=== PATIENT | female | born 1975 | race Hispanic/Latino ===

== ENCOUNTER → 2018-04-24 | Day surgery (SDC) | payer BC, SELFPAY ==
[~2018-04-24] MED LIST: CEFAZOLIN 1 GM VIAL ONE; CEFAZOLIN 1 GM in Sodium Chloride 0.9% 100 ML IVPB SCH; Iothalamate Meglumine 60% 50 ML VIAL FS ONE; Ketorolac Tromethamine 30 MG/ML VIAL ONE
[2018-04-24 10:39] LABS: Bilirubin Negative (Negative); Blood, Urine Small (Negative); Glucose, Urine (Dipstick) Negative (Negative); Leukocyte Negative (Negative); Nitrite Negative (Negative); Protein, Urine (Dipstick) Negative (Neg-Trace); Specific Gravity, Urine 1.025 (1.005-1.030); Urobilinogen 0.2 mg/dL (0.2-1.0)
[2018-04-24 10:41] LABS: Clarity Hazy (Clear)
[2018-04-24 10:51] LABS: RBC/HPF 0-3 HPF (0-3); WBC/HPF 0-3 HPF (0-3)
[2018-04-24 10:52] LABS: Bacteria/HPF 1+ HPF (None Seen); Hyaline Casts/LPF NONE SEEN LPF (0-3 Hyaline)
[2018-04-24 10:54] LABS: #Basophils 0.1 thou/uL (0.0-0.2); #Eosinphils 0.1 thou/uL (0.0-0.7); #Monocytes 0.5 thou/uL (0.11-0.59); %Basophils 0.6 % (0.0-1.0); %Eosinophils 0.9 % (0.0-10.0); %Lymphocytes 31.2 % (21.0-51.0); %Monocytes 5.3 % (0.0-10.0); %Neutrophils 61.9 % (42.0-75.0); Hemoglobin 14.2 g/dL (12.0-16.0); Mean Corpuscular HGB CONC 33.2 g/dL (32.0-36.0); Mean Corpuscular Hemoglobin 27.9 pg (27.0-31.0); Mean Corpuscular Volume 84.3 fL (78.0-98.0); Mean Platelet Volume 7.6 fL (7.4-10.4); Platelet Count 224 thou/uL (130-400); RBC Distribution Width 13.7 % (11.5-14.5); Red Blood Cell (RBC) Count 5.07 mill/uL (4.20-5.40); White Blood Cell (WBC) Count 9.7 thou/uL (4.8-10.8)
[2018-04-24 11:04] LABS: BHCG - Serum Negative (NEGATIVE); Pregs Control Background? CLEAR/WHITE (CLR/WHITE); Pregs Control Bar Appear? YES (CONTROL BAR)
[2018-04-24 11:16] LABS: ALT (SGPT) 94 U/L (8-55); AST (SGOT) 60 U/L (5-34); Albumin 4.2 g/dL (3.5-5.0); Alkaline Phosphatase 79 U/L (40-150); Anion Gap 12 mmol/L (10-20); BUN (Urea Nitrogen) 10 mg/dL (7.0-18.7); Bilirubin, Total 0.9 mg/dL (0.2-1.2); Calc. Creatinine Clearance 0 mL/min (70-130); Calcium 11.2 mg/dL (7.8-10.44); Carbon Dioxide 22 mmol/L (22-29); Chloride 108 mmol/L (98-107); Estimated GFR-MDRD 78; Glucose 95 mg/dL (70-105); Lipase 22 U/L (8-78); Potassium 3.6 mmol/L (3.5-5.1); Protein, Total 7.2 g/dL (6.0-8.3); Sodium 138 mmol/L (136-145)
--- NOTE | 2018-04-24 11:51 | CT ---
CT ABDOMEN AND PELVIS NONCONTRAST: 04/24/2018 HISTORY: Right flank pain. COMPARISON: 04/17/2014 COMPARISON: There is moderate distention of the right renal collecting system and pelvis, to the level of an oval calculus at the distal right ureter that measures up to 1 cm in length x 0.6 cm in width. The left renal collecting system, ureter, and urinary bladder are decompressed. Multiple calcificati ons are present within the calyces of each kidney, measuring up to 0.5 cm. Lack of contrast limits evaluation for other abnormalities. The gallbladder is surgically absent. D egenerative changes of the lumbar spine. IMPRESSION: Partial obstruction at a 1 cm distal right ureteral calculus. Additional nonobstructing bilateral re nal calculi. POS: LEROY
--- NOTE | 2018-04-24 13:54 | HP ---
DATE OF SERVICE: 04/24/2018 REASON FOR ADMISSION: Obstructing right stone with persistent pain after medications. HISTORY OF PRESENT ILLNESS: The patient is a 43-year-old female who is actually a patient of Dr. Vuong who had significant right renal colic and presented with a CT scan that found a 1 cm obstructing UVJ stone with hydronephrosis. She had no fever. She had no hematuria. She has no concern for urinary tract infection. She has passed one stone in the room and she passed another after having a stent placed and then removed given that it was a small stone per her report. Normally, she has frequency q. 2-3 hours, nocturia x1. She has never had UTIs before. She has no leakage. PAST MEDICAL HISTORY: Significant for stones. PAST SURGICAL HISTORY: Includes gallbladder, ureteral stent as above-mentioned and left arthroscopy for meniscus repair. ALLERGIES: None. MEDICATIONS: She is on multiple supplements for weight loss. I cautioned against making sure none of these have significant amounts of calcium in it. SURGERY CONSULTANT HISTORY: She has had a emergently given infant issues, but the child was fine and then she had 3 vaginal deliveries. She still has her uterus and ovaries. SOCIAL HISTORY: She does not smoke, drink or use drugs. She is walking now and has already lost 14 pounds since initiating her weight loss program. REVIEW OF SYSTEMS: Also reveals no chest pain, no shortness of breath unless that related to significant pain. No cough, no diarrhea, no constipation. No swelling in the ankles. FAMILY HISTORY: Significant for mother and father being alive and healthy. She is not sure if either them had stones; neither had cancer. PHYSICAL EXAMINATION: VITAL SIGNS: Please see the chart for her vitals, but she has been afebrile with vital signs stable. GENERAL: She appears comfortable in the bed. She is obese so JVD is difficult to establish. HEENT: She has no scleral icterus or diaphoresis. CARDIOVASCULAR: Regular rhythm with a borderline tachycardia noted. No murmurs , gallops or rubs. LUNGS: Clear to auscultation bilaterally. ABDOMEN: Soft, nondistended with mild tenderness in the right lower quadrant, but no peritoneal signs or rebound tenderness. She had right CVA tenderness, but none on the left. EXTREMITIES: She had no significant lower extremity edema. PELVIC: Her vulva will be examined in the OR. LABORATORY DATA: Reveal a normal CBC, BUN and creatinine of 10 and 0.80. Urinalysis with 0-3 WBCs, 0-3 RBCs, 1+ bacteria and 4-6 squamous cells, may be a contaminant given the lack of inflammation or symptoms noted, but will ensure culture is sent. CT scan reviewed personally from 04/24/2018 without contrast revealed eight stones on the right, all less than 3 mm except for a mid stone on the right with 5 mm. She had 5 or 6 small stones on the left, all less than 5 mm and then she has the offending 1 cm long x 5 mm wide right UVJ stone with hydronephrosis. CT scan from 04/2014 was also reviewed, showed only bilateral efflux at that time. ASSESSMENT AND PLAN: We have a 43-year-old female with an obstructing right stone and intractable pain, being admitted for urgent stent. We reviewed stent placements and how we will not be treating the offending stone in the case that she needs a perk tube if I am unable to place a stent, she can return for definitive followup with me as an outpatient. She can return to Dr. Vuong or to me depending on whatever she is most comfortable with. She will still need stone therapy after this admission. MIHAELA
--- NOTE | 2018-04-25 01:45 | DIS ---
The patient was admitted acutely with an obstructing 1-cm distal stone and intractable pain, so was set for urgent stent. Less than approximately 10 minutes before she was going to be brought back to the OR, she voided and spontaneously passed the stone. At this point, it was sent for specimen and she was discharged to home with antibiotics to complete 3 days based on the concern for slight bacteria in the urine. She was also given a prescription for tamsulosin. She will follow up in the office to review the remaining stones she has in the kidneys as well as stone prevention. MIHAELA
[2018-04-29 11:28] LABS: CA Oxalate Dihydrate 15 % (.); CA Oxalate Monohydrate 10 % (.); CA Phosphate 75 % (.); Color Tan (.); Comment Note: (.); Stone Size 8x4x4 mm (.)
== END ==
LOC: ERS 10:15 → SDC/OP 16:25
PROVIDERS: ATTEND Urology
DX: N13.2 Hydronephrosis with renal and ureteral calculous obstruction (principal); Z87.442 Personal history of urinary calculi; Z53.8 Procedure and treatment not carried out for other reasons
CPT/HCPCS: 36415; 74176; 80053; 81003; 81015; 82365; 83690; 84703; 85025; 87086; 88300; 93005; 96361; 96365; 96375; J0690; J1885; J2270; J7050; Q9961

== ENCOUNTER 2019-07-24 07:11 | Emergency (ER) | payer SELFPAY ==
[2019-07-24] MEDS ORDERED: Ketorolac Tromethamine 30 MG/ML VIAL ONE (08:10)
[2019-07-24 08:17] LABS: #Lymphocytes 1.5 thou/uL (1.20-3.40); #Monocytes 0.9 thou/uL (0.11-0.59); #Neutrophils 9.9 thou/uL (1.40-6.50); %Basophils 0.1 % (0.0-1.0); %Eosinophils 0.3 % (0.0-10.0); %Lymphocytes 12.1 % (21.0-51.0); %Monocytes 7.2 % (0.0-10.0); %Neutrophils 80.3 % (42.0-75.0); Hemoglobin 14.2 g/dL (12.0-16.0); Mean Corpuscular HGB CONC 33.2 g/dL (32.0-36.0); Mean Corpuscular Hemoglobin 27.6 pg (27.0-31.0); Mean Platelet Volume 8.2 fL (7.4-10.4); Platelet Count 222 thou/uL (130-400); RBC Distribution Width 13.1 % (11.5-14.5); Red Blood Cell (RBC) Count 5.14 mill/uL (4.20-5.40); White Blood Cell (WBC) Count 12.4 thou/uL (4.8-10.8)
[2019-07-24 08:20] LABS: Bacteria/HPF 4+ HPF (None Seen); Bilirubin Negative (Negative); Blood, Urine 1+ (Negative); Clarity Turbid (Clear); Glucose, Urine (Dipstick) Normal (Negative); Leukocyte 500 Leu/uL (Negative); Nitrite Negative (Negative); Protein, Urine (Dipstick) Negative (Neg-Trace); Urobilinogen Normal mg/dL (Less than 2); WBC/HPF Greater than 50 HPF (0-3)
[2019-07-24 08:28] LABS: Pregnancy Test - Urine (BHCG) Negative (Negative); Pregu Control Background? CLEAR/WHITE (CLR/WHITE); Pregu Control Bar Appear? YES (CONTROL BAR); Specific Gravity 1.011 (1.002-1.036)
[2019-07-24 08:38] LABS: ALT (SGPT) 36 U/L (8-55); AST (SGOT) 20 U/L (5-34); Albumin 4.3 g/dL (3.5-5.0); Alkaline Phosphatase 102 U/L (40-110); Anion Gap 13 mmol/L (10-20); BUN (Urea Nitrogen) 13 mg/dL (7.0-18.7); Bilirubin, Total 1.1 mg/dL (0.2-1.2); Calc. Creatinine Clearance 0 mL/min (70-130); Calcium 10.8 mg/dL (7.8-10.44); Carbon Dioxide 22 mmol/L (22-29); Chloride 108 mmol/L (98-107); Estimated GFR-MDRD 81; Globulin 3.1 g/dL (2.4-3.5); Glucose 104 mg/dL (70-105); Lipase 16 U/L (8-78); Potassium 4.1 mmol/L (3.5-5.1); Protein, Total 7.4 g/dL (6.0-8.3); Sodium 139 mmol/L (136-145)
[2019-07-24 08:50] LABS: BHCG - Serum Negative (NEGATIVE); Pregs Control Background? CLEAR/WHITE (CLR/WHITE); Pregs Control Bar Appear? YES (CONTROL BAR)
--- NOTE | 2019-07-24 09:15 | CT ---
CT abdomen and pelvis performed without contrast HISTORY: Abdominal pain. COMPARISON: 04/24/2018 study FINDINGS: The lung bases are clear of infiltrates. The liver, spleen and pancreas regions appear unremarkable. The gallbladder has been removed. Right and left adrenal glands are normal in appearance. Multiple right-sided renal calculi are seen l argest is in the 5 to 6 mm range. There are also multiple punctate left-sided renal calculi with left-sided hydronephrosis and hydroureter related to a distal left ureteral calculus measuring 5 to 6 mm located just proximal to the left ureterovesical junction. There is no significant periaortic or mesenteric adenopathy. The appendix is more retrocecal in location and normal in appearance. CT of pelvis performed without contrast enhancement: There is no evidence of adenopathy, mass or free fluid. IMPRESSION: 1. Bilateral renal calculi. 2. 6 mm distal left ureteral calculus causing mild left-sided hydronephrosis and hydroureter. The roselyn culus is located just proximal to the left ureterovesical junction.
[2019-07-24] MEDS ORDERED: cefTRIAXone\\ROCEPHIN 2 GM VIAL ONE (10:01)
[2019-07-24] MEDS ORDERED: HYDROcodone/Acetaminophen 5/325 mg Tablet ONE (11:16)
[2019-07-24] MEDS ORDERED: Acetaminophen 325 MG TAB ONE (11:16)
== END 2019-07-24 11:27 | disposition home or self-care (01) ==
LOC: ERS 07:11
DX: N12 Tubulo-interstitial nephritis, not specified as acute or chronic (principal); N13.2 Hydronephrosis with renal and ureteral calculous obstruction
CPT/HCPCS: 74176; 80053; 81003; 81015; 81025; 83690; 84703; 85025; 93005; 96361; 96365; 96375; J0696; J1885

== ENCOUNTER 2020-11-25 02:41 | Emergency (ER) | payer SELFPAY ==
[2020-11-25 03:05] LABS: #Basophils 0.1 thou/uL (0.0-0.2); #Eosinphils 0.1 thou/uL (0.0-0.7); #Lymphocytes 4.2 thou/uL (1.20-3.40); #Monocytes 0.6 thou/uL (0.11-0.59); #Neutrophils 5.3 thou/uL (1.40-6.50); %Basophils 0.7 % (0.0-1.0); %Eosinophils 1.3 % (0.0-10.0); %Lymphocytes 40.5 % (21.0-51.0); %Monocytes 6.1 % (0.0-10.0); %Neutrophils 51.5 % (42.0-75.0); Hemoglobin 13.4 g/dL (12.0-16.0); Mean Corpuscular HGB CONC 32.7 g/dL (32.0-36.0); Mean Corpuscular Hemoglobin 27.2 pg (27.0-31.0); Mean Platelet Volume 7.7 fL (7.4-10.4); Platelet Count 243 thou/uL (130-400); RBC Distribution Width 13.7 % (11.5-14.5); Red Blood Cell (RBC) Count 4.95 mill/uL (4.20-5.40); White Blood Cell (WBC) Count 10.3 thou/uL (4.8-10.8)
[2020-11-25 03:25] LABS: ALT (SGPT) 35 U/L (8-55); AST (SGOT) 25 U/L (5-34); Albumin 3.9 g/dL (3.5-5.0); Alkaline Phosphatase 117 U/L (40-110); Anion Gap 13 mmol/L (10-20); BUN (Urea Nitrogen) 12 mg/dL (7.0-18.7); Bilirubin, Total 0.6 mg/dL (0.2-1.2); Calc. Creatinine Clearance 0 mL/min (70-130); Calcium 10.6 mg/dL (7.8-10.44); Carbon Dioxide 22 mmol/L (22-29); Chloride 109 mmol/L (98-107); Globulin 2.8 g/dL (2.4-3.5); Glucose 98 mg/dL (70-105); Potassium 3.9 mmol/L (3.5-5.1); Protein, Total 6.7 g/dL (6.0-8.3); Sodium 140 mmol/L (136-145)
[2020-11-25] MEDS ORDERED: HYDROcodone/Acetaminophen 5/325 mg Tablet ONE (04:27)
[2020-11-25] MEDS ORDERED: Ondansetron ODT 8 MG TAB ONE (04:27)
[2020-11-25 05:16] LABS: Bilirubin Negative (Negative); Blood, Urine 2+ (Negative); Clarity Clear (Clear); Glucose, Urine (Dipstick) Normal (Negative); Ketone, Urine Negative (Negative); Leukocyte Negative Leu/uL (Negative); Nitrite Negative (Negative); Protein, Urine (Dipstick) Negative (Neg-Trace); Specific Gravity, Urine 1.009 (1.002-1.036); Squamous Epithelial 0-3 HPF (0-3); Urobilinogen Normal mg/dL (Less than 2); WBC/HPF 0-3 HPF (0-3); pH, Urine 6.5 (5.0-9.0)
[2020-11-25 05:18] LABS: Bacteria/HPF 1+ HPF (None Seen)
== END 2020-11-25 05:50 | disposition home or self-care (01) ==
LOC: ERS 02:41
DX: N13.2 Hydronephrosis with renal and ureteral calculous obstruction (principal); E66.9 Obesity, unspecified; K76.0 Fatty (change of) liver, not elsewhere classified
CPT/HCPCS: 36415; 74176; 80053; 81003; 81015; 85025; Q0162

== ENCOUNTER 2021-02-06 11:10 | Outpatient (CLI) | payer OTHER | END 2021-02-06 11:11 | disposition home or self-care (01) | LOC: BICMAMMO 11:10 | PROVIDERS: ATTEND Family Medicine | DX: Z12.31 Encounter for screening mammogram for malignant neoplasm of breast (principal) | CPT/HCPCS: 77063; 77067 ==

== ENCOUNTER 2021-10-11 20:05 | Emergency (ER) | payer BC, OTHER ==
[2021-10-11 22:05] LABS: #Basophils 0.1 thou/uL (0.0-0.2); #Eosinphils 0.1 thou/uL (0.0-0.7); #Lymphocytes 2.8 thou/uL (1.20-3.40); #Neutrophils 8.1 thou/uL (1.40-6.50); %Basophils 0.5 % (0.0-1.0); %Lymphocytes 23.1 % (21.0-51.0); %Monocytes 8.5 % (0.0-10.0); %Neutrophils 66.9 % (42.0-75.0); Hemoglobin 14.5 g/dL (12.0-16.0); Mean Corpuscular HGB CONC 33.4 g/dL (32.0-36.0); Mean Corpuscular Volume 83.7 fL (78.0-98.0); Mean Platelet Volume 7.6 fL (7.4-10.4); Platelet Count 223 thou/uL (130-400); RBC Distribution Width 13.8 % (11.5-14.5); White Blood Cell (WBC) Count 12.1 thou/uL (4.8-10.8)
[2021-10-11 22:25] LABS: ALT (SGPT) 38 U/L (8-55); AST (SGOT) 25 U/L (5-34); Alkaline Phosphatase 112 U/L (40-110); Anion Gap 13 mmol/L (10-20); BUN (Urea Nitrogen) 16 mg/dL (7.0-18.7); Calc. Creatinine Clearance 0 mL/min (70-130); Carbon Dioxide 23 mmol/L (22-29); Chloride 107 mmol/L (98-107); Globulin 3.2 g/dL (2.4-3.5); Glucose 100 mg/dL (70-105); Lipase 31 U/L (8-78); Potassium 4.6 mmol/L (3.5-5.1); Protein, Total 7.2 g/dL (6.0-8.3); Sodium 138 mmol/L (136-145)
[2021-10-11 23:10] LABS: Bilirubin Negative (Negative); Blood, Urine Trace (Negative); Clarity Clear (Clear); Glucose, Urine (Dipstick) Normal (Negative); Ketone, Urine Negative (Negative); Leukocyte Negative Leu/uL (Negative); Nitrite Negative (Negative); Protein, Urine (Dipstick) Negative (Neg-Trace); Specific Gravity, Urine 1.009 (1.002-1.036); Squamous Epithelial 0-3 HPF (0-3); Urobilinogen Normal mg/dL (Less than 2); WBC/HPF 0-3 HPF (0-3); pH, Urine 6.5 (5.0-9.0)
[2021-10-11 23:13] LABS: Bacteria/HPF 1+ HPF (None Seen)
[2021-10-12] MEDS ORDERED: Ketorolac Tromethamine 30 MG/ML VIAL ONE (01:13)
[2021-10-12] MEDS ORDERED: cefTRIAXone\\ROCEPHIN 1 GM VIAL ONE (01:48)
== END 2021-10-12 02:54 | disposition home or self-care (01) ==
LOC: ERS 20:05
DX: N13.2 Hydronephrosis with renal and ureteral calculous obstruction (principal); E66.9 Obesity, unspecified
CPT/HCPCS: 36415; 74176; 80053; 81003; 81015; 83690; 85025; 87086; 96374; 96375; J0696; J1885

== ENCOUNTER 2021-10-24 03:12 | Observation (INO) | payer BC ==
[2021-10-24] MEDS ORDERED: Ketorolac Tromethamine 30 MG/ML VIAL ONE (03:34)
[2021-10-24 03:53] LABS: #Basophils 0.1 thou/uL (0.0-0.2); #Eosinphils 0.1 thou/uL (0.0-0.7); #Lymphocytes 4.1 thou/uL (1.20-3.40); #Monocytes 0.7 thou/uL (0.11-0.59); #Neutrophils 6.5 thou/uL (1.40-6.50); %Basophils 1.1 % (0.0-1.0); %Eosinophils 1.1 % (0.0-10.0); %Lymphocytes 35.2 % (21.0-51.0); %Monocytes 6.1 % (0.0-10.0); %Neutrophils 56.5 % (42.0-75.0); Hemoglobin 14.5 g/dL (12.0-16.0); Mean Corpuscular HGB CONC 34.4 g/dL (32.0-36.0); Mean Corpuscular Hemoglobin 28.3 pg (27.0-31.0); Mean Corpuscular Volume 82.3 fL (78.0-98.0); Mean Platelet Volume 7.5 fL (7.4-10.4); Platelet Count 264 thou/uL (130-400); RBC Distribution Width 13.2 % (11.5-14.5); Red Blood Cell (RBC) Count 5.15 mill/uL (4.20-5.40); White Blood Cell (WBC) Count 11.5 thou/uL (4.8-10.8)
[2021-10-24 04:13] LABS: Bacteria/HPF None Seen HPF (None Seen); Bilirubin Negative (Negative); Blood, Urine 3+ (Negative); Clarity Turbid (Clear); Glucose, Urine (Dipstick) Normal (Negative); Ketone, Urine Negative (Negative); Leukocyte 75 Leu/uL (Negative); Nitrite Negative (Negative); Protein, Urine (Dipstick) 20 mg/dL (Neg-Trace); RBC/HPF Greater than 50 HPF (0-3); Specific Gravity, Urine 1.009 (1.002-1.036); Squamous Epithelial 0-3 HPF (0-3); Urobilinogen Normal mg/dL (Less than 2); WBC/HPF Greater than 50 HPF (0-3)
[2021-10-24 04:16] LABS: ALT (SGPT) 25 U/L (8-55); AST (SGOT) 16 U/L (5-34); Albumin 4.3 g/dL (3.5-5.0); Alkaline Phosphatase 115 U/L (40-110); Anion Gap 14 mmol/L (10-20); BUN (Urea Nitrogen) 15 mg/dL (7.0-18.7); Bilirubin, Total 0.6 mg/dL (0.2-1.2); Calc. Creatinine Clearance 0 mL/min (70-130); Calcium 11.3 mg/dL (7.8-10.44); Carbon Dioxide 21 mmol/L (22-29); Chloride 107 mmol/L (98-107); Globulin 3.2 g/dL (2.4-3.5); Glucose 95 mg/dL (70-105); Potassium 3.7 mmol/L (3.5-5.1); Protein, Total 7.5 g/dL (6.0-8.3); Sodium 138 mmol/L (136-145)
[2021-10-24 04:23] LABS: BHCG - Serum Negative (NEGATIVE); Pregs Control Background? CLEAR/WHITE (CLR/WHITE); Pregs Control Bar Appear? YES (CONTROL BAR)
[2021-10-24] MEDS ORDERED: Ondansetron PF 4 MG/2 ML Vial ONE ×2 (05:30→11:14)
[2021-10-24] MEDS ORDERED: Morphine 4 MG/ML VIAL ONE (05:30)
[2021-10-24] MEDS ORDERED: Levofloxacin 500 mg/D5W 100 ml Premix Bag ONE (08:13)
[2021-10-24 08:24] LABS: SARS-CoV-2 NAA Rapid Test Not Detected (NotDetected)
[2021-10-24] MEDS ORDERED: Famotidine/PF 20 mg/2ml Vial ONE (10:35)
[2021-10-24] MEDS ORDERED: Fentanyl 100 MCG/2 ML VIAL ONE ×2 (10:38)
[2021-10-24] MEDS ORDERED: Midazolam HCl 2 mg/2 ml Vial ONE (10:38)
[2021-10-24] MEDS ORDERED: Iothalamate Meglumine 60% 50 ML VIAL FS ONE (11:06)
[2021-10-24] MEDS ORDERED: Lidocaine 1% PF 5 ML VIAL ONE (11:14)
[2021-10-24] MEDS ORDERED: Dexamethasone 20 MG/5 ML VIAL ONE (11:14)
[2021-10-24] MEDS ORDERED: Metoclopramide HCl 10 MG/2 ML VIAL ONE (11:14)
[2021-10-24] MEDS ORDERED: PROPOFOL 200 MG/20 ML VIAL ONE (11:14)
[2021-10-24] MEDS ORDERED: HYDROcodone/Acetaminophen 5/325 mg Tablet ONE (13:02)
== END 2021-10-24 13:50 | disposition home or self-care (01) ==
LOC: ERS 03:12 → ERHOLD 05:59 → SURG A 11:00
PROVIDERS: ADMIT Urology; ATTEND Urology
PROC: 0T788DZ Dilation of Bilateral Ureters with Intraluminal Device, Via Natural or Artificial Opening Endoscopic (ICD-10-PCS; principal; 2021-10-24)
DX: N13.2 Hydronephrosis with renal and ureteral calculous obstruction (principal); N13.4 Hydroureter; Z79.899 Other long term (current) drug therapy; Z20.822 Contact with and (suspected) exposure to COVID-19
CPT/HCPCS: 74176; 74420; 80053; 81003; 81015; 84703; 85025; 87086; C2617; G0378; J1100; J1885; J1956; J2250; J2270; J2405; J2704; J2765; J3010; Q9961-U8; S0028; U0002

== ENCOUNTER 2021-11-09 15:25 | Outpatient (CLI) | payer BC ==
[2021-11-09 17:37] LABS: Bilirubin 1+ (Negative); Blood, Urine 250 (Negative); Glucose, Urine (Dipstick) Normal (Negative); Ketone, Urine Negative (Negative); Leukocyte 500 (Negative); Nitrite Positive (Negative); Protein, Urine (Dipstick) 100 mg/dl (Neg-Trace)
[2021-11-09 17:53] LABS: Bacteria/HPF 1+ HPF (None Seen); Clarity Turbid (Clear); RBC/HPF Greater than 50 HPF (0-3); Squamous Epithelial 0-3 HPF (0-3)
[2021-11-10 08:33] LABS: SARS-CoV-2 PCR by NAA Not Detected (NotDetected)
== END 2021-11-09 15:26 | disposition home or self-care (01) ==
LOC: LABBT 15:25
PROVIDERS: ATTEND Urology
DX: Z01.812 Encounter for preprocedural laboratory examination (principal); N20.2 Calculus of kidney with calculus of ureter; Z20.822 Contact with and (suspected) exposure to COVID-19
CPT/HCPCS: 81001; 87086; U0003; U0005

== ENCOUNTER 2022-08-06 10:58 | Outpatient (CLI) | payer BC | END 2022-08-06 10:59 | disposition home or self-care (01) | LOC: NM 10:58 | PROVIDERS: ATTEND Student in an Organized Health Care Education/Training Program | DX: E21.3 Hyperparathyroidism, unspecified (principal) | CPT/HCPCS: 78072; A9500 ==

== ENCOUNTER 2023-12-10 07:35 | Inpatient (IN) | payer BC, OTHER ==
[2023-12-10 08:28] LABS: Bilirubin Negative (Negative); Blood, Urine 1+ (Negative); CAUTI Indications for Culture Dysuria,urgency,freq; Clarity Turbid (Clear); Glucose, Urine (Dipstick) Normal (Negative); Ketone, Urine Negative (Negative); Leukocyte 500 Leu/uL (Negative); Nitrite Negative (Negative); Protein, Urine (Dipstick) Negative (Neg-Trace); Specific Gravity, Urine 1.009 (1.002-1.036); Urobilinogen Normal mg/dL (Less than 2); WBC/HPF Greater than 50 HPF (0-3); pH, Urine 7.5 (5.0-9.0)
[2023-12-10 08:29] LABS: Bacteria/HPF 1+ HPF (None Seen)
[2023-12-10 08:31] LABS: Urine Culture Reflex Yes Yes
[2023-12-10] MEDS ORDERED: Ketorolac Tromethamine 30 MG (1 mL) VIAL ONE (08:37)
[2023-12-10] MEDS ORDERED: Ondansetron PF 4 MG/2 ML Vial ONE (08:38)
[2023-12-10] MEDS ORDERED: Acetaminophen 500 MG TAB ONE (08:40)
[2023-12-10 08:48] LABS: #Basophils 0.05 10x3/uL (0.0-0.2); %Basophils 0.3 % (0.0-1.0); %Eosinophils 0.2 % (0.0-10.0); %Lymphocytes 14.6 % (21.0-51.0); %Monocytes 6.2 % (0.0-10.0); %Neutrophils 78.2 % (42.0-75.0); Hematocrit 45.4 % (36.0-47.0); Hemoglobin 14.7 g/dL (12.0-16.0); Mean Corpuscular HGB CONC 32.4 g/dL (32.0-36.0); Mean Corpuscular Hemoglobin 26.4 pg (27.0-31.0); Mean Corpuscular Volume 81.5 fL (78.0-98.0); Mean Platelet Volume 9.7 fL (7.4-10.4); Platelet Count 362 10x3/uL (130-400); Red Blood Cell (RBC) Count 5.57 mill/uL (4.20-5.40)
[2023-12-10] MEDS ORDERED: cefTRIAXone (ROCEPHIN) 2 GM VIAL ONE (08:51)
[2023-12-10] MEDS ORDERED: Sodium Chloride 0.9% 100 ML ONE (08:51)
[2023-12-10 09:10] LABS: ALT (SGPT) 19 U/L (8-55); AST (SGOT) 14 U/L (5-34); Albumin 4.3 g/dL (3.5-5.0); Alkaline Phosphatase 89 U/L (40-110); Anion Gap 15 mmol/L (10-20); BUN (Urea Nitrogen) 11 mg/dL (7.0-18.7); Bilirubin, Total 1.1 mg/dL (0.2-1.2); Calc. Creatinine Clearance 0 mL/min (70-130); Calcium 12.1 mg/dL (7.8-10.44); Carbon Dioxide 21 mmol/L (22-29); Chloride 108 mmol/L (98-107); Estimated GFR 90; Globulin 3.6 g/dL (2.4-3.5); Glucose 106 mg/dL (70-105); Lipase 26 U/L (8-78); Potassium 3.7 mmol/L (3.5-5.1); Protein, Total 7.9 g/dL (6.0-8.3); Sodium 140 mmol/L (136-145)
[2023-12-10 10:46] LABS: Prothrombin Time 13.4 sec (12.0-14.7)
[2023-12-10] MEDS ORDERED: Lactated Ringer's 1,000 ML IV SCH (12:15)
[2023-12-10] MEDS ORDERED: Sodium Chloride 0.9% 500 ML ONE (12:48)
[2023-12-10] MEDS ORDERED: Sodium Bicarbonate 2.5 MEQ/5 ML SDV ONE ×2 (12:48→14:31)
[2023-12-10] MEDS ORDERED: Iopamidol 100 ML FS ONE (12:48)
[2023-12-10] MEDS ORDERED: [UNRECOGNIZED DRUG - OTHER] IVPB PRN (13:03)
[2023-12-10] MEDS: Lactated Ringer's 1,000 ML IV SCH ×3 (13:04→22:19)
[2023-12-10] MEDS ORDERED: Lidocaine 1% PF 5 ML VIAL ONE (13:35)
[2023-12-10] MEDS ORDERED: fentaNYL 50 mcg/mL 1 mL Vial ONE (14:31)
[2023-12-10] MEDS ORDERED: Lidocaine 1% w/Epinephrine 1:100K 20 ML VIAL ONE (14:32)
[2023-12-10] MEDS ORDERED: Midazolam HCl 2 mg/2 ml Vial ONE (14:32)
[2023-12-10 17:18] LABS: Calcium 11.6 mg/dL (7.8-10.44)
[2023-12-10] MEDS: Acetaminophen 325 MG TAB PO PRN (17:57)
[2023-12-10] MEDS: Vancomycin (BATCH) 2 GM in Premix 1 BAG IVPB SCH (18:42)
[2023-12-10 20:35] VITALS: BMI 46.5
[2023-12-10] MEDS: Sodium Chloride 0.9% 1,000 ML IV SCH (20:43)
[2023-12-10] MEDS ORDERED: Vancomycin 1 GM in Premix 1 BAG IVPB SCH (21:00)
[2023-12-10] MEDS ORDERED: Vancomycin 1 GM in Sodium Chloride 0.9% 250 ML 250 ML IVPB SCH (21:00)
[2023-12-10] MEDS: HYDROcodone/Acetaminophen 5/325 mg Tablet PO PRN (21:34)
[2023-12-10] MEDS: Lactated Ringer's 500 ML IV SCH ×2 (21:41→23:12)
[2023-12-11 05:13] LABS: #Basophils 0.05 10x3/uL (0.0-0.2); #Eosinphils Less than 0.03 10x3/uL (0.0-0.7); %Basophils 0.3 % (0.0-1.0); %Eosinophils 0.1 % (0.0-10.0); %Lymphocytes 16.5 % (21.0-51.0); %Monocytes 8.6 % (0.0-10.0); %Neutrophils 73.9 % (42.0-75.0); Hematocrit 40.1 % (36.0-47.0); Hemoglobin 12.8 g/dL (12.0-16.0); Mean Corpuscular HGB CONC 31.9 g/dL (32.0-36.0); Mean Corpuscular Hemoglobin 26.9 pg (27.0-31.0); Mean Corpuscular Volume 84.2 fL (78.0-98.0); Mean Platelet Volume 10.2 fL (7.4-10.4); Platelet Count 297 10x3/uL (130-400); RBC Distribution Width 14.1 % (11.5-14.5); Red Blood Cell (RBC) Count 4.76 mill/uL (4.20-5.40)
[2023-12-11] MEDS: Vancomycin 1 GM in Premix 1 BAG IVPB SCH (05:37)
[2023-12-11 05:40] LABS: Vancomycin, Random 16.3 ug/mL (See Comment)
[2023-12-11 05:58] LABS: Anion Gap 13 mmol/L (10-20); BUN (Urea Nitrogen) 7 mg/dL (7.0-18.7); Calc. Creatinine Clearance 186 mL/min (70-130); Calcium 10.7 mg/dL (7.8-10.44); Carbon Dioxide 20 mmol/L (22-29); Chloride 112 mmol/L (98-107); Estimated GFR 107; Glucose 85 mg/dL (70-105); Potassium 3.7 mmol/L (3.5-5.1); Sodium 141 mmol/L (136-145)
[2023-12-11] MEDS: cefTRIAXone\\ROCEPHIN 1 GM in Sodium Chloride 0.9% 100 ML IVPB SCH ×2 (08:12→15:20)
[2023-12-11] MEDS ORDERED: Enoxaparin 40 MG (0.4 mL) SYRINGE SC SCH (09:00)
[2023-12-11] MEDS: Senokot S 8.6-50 MG TAB PO PRN (20:11)
[2023-12-11] MEDS ORDERED: cefTRIAXone\\ROCEPHIN 1 GM in Sodium Chloride 0.9% 100 ML IVPB SCH (21:00)
[2023-12-12 05:14] LABS: #Basophils 0.04 10x3/uL (0.0-0.2); %Basophils 0.4 % (0.0-1.0); %Eosinophils 0.9 % (0.0-10.0); %Lymphocytes 28.9 % (21.0-51.0); %Monocytes 7.9 % (0.0-10.0); %Neutrophils 61.3 % (42.0-75.0); Hematocrit 41.5 % (36.0-47.0); Hemoglobin 13.2 g/dL (12.0-16.0); Mean Corpuscular HGB CONC 31.8 g/dL (32.0-36.0); Mean Corpuscular Hemoglobin 26.2 pg (27.0-31.0); Mean Corpuscular Volume 82.3 fL (78.0-98.0); Platelet Count 325 10x3/uL (130-400); RBC Distribution Width 14.1 % (11.5-14.5); Red Blood Cell (RBC) Count 5.04 mill/uL (4.20-5.40)
[2023-12-12 05:31] LABS: Anion Gap 10 mmol/L (10-20); BUN (Urea Nitrogen) 7 mg/dL (7.0-18.7); Calc. Creatinine Clearance 180 mL/min (70-130); Calcium 11.4 mg/dL (7.8-10.44); Carbon Dioxide 22 mmol/L (22-29); Chloride 110 mmol/L (98-107); Estimated GFR 106; Glucose 93 mg/dL (70-105); Potassium 3.6 mmol/L (3.5-5.1); Sodium 138 mmol/L (136-145)
[2023-12-12] MEDS: cefTRIAXone\\ROCEPHIN 2 GM in Sodium Chloride 0.9% 100 ML IVPB SCH (08:12)
[2023-12-12] MEDS: Sodium Chloride 0.9% 100 ML ONE (08:21)
[2023-12-12] MEDS ORDERED: cefTRIAXone\\ROCEPHIN 2 GM in Sodium Chloride 0.9% 100 ML IVPB SCH ×2 (09:00→21:00)
[2023-12-13 04:03] LABS: #Basophils 0.04 10x3/uL (0.0-0.2); %Basophils 0.4 % (0.0-1.0); %Eosinophils 1.5 % (0.0-10.0); %Lymphocytes 31.8 % (21.0-51.0); %Monocytes 6.6 % (0.0-10.0); %Neutrophils 59.3 % (42.0-75.0); Hematocrit 39.1 % (36.0-47.0); Hemoglobin 12.5 g/dL (12.0-16.0); Mean Corpuscular Hemoglobin 26.4 pg (27.0-31.0); Mean Corpuscular Volume 82.5 fL (78.0-98.0); Mean Platelet Volume 10.2 fL (7.4-10.4); Platelet Count 358 10x3/uL (130-400); RBC Distribution Width 13.8 % (11.5-14.5); Red Blood Cell (RBC) Count 4.74 mill/uL (4.20-5.40)
[2023-12-13 04:17] LABS: Anion Gap 13 mmol/L (10-20); BUN (Urea Nitrogen) 10 mg/dL (7.0-18.7); Calc. Creatinine Clearance 173 mL/min (70-130); Calcium 11.8 mg/dL (7.8-10.44); Carbon Dioxide 22 mmol/L (22-29); Chloride 109 mmol/L (98-107); Estimated GFR 104; Glucose 94 mg/dL (70-105); Potassium 3.3 mmol/L (3.5-5.1); Sodium 141 mmol/L (136-145)
[2023-12-13] MEDS: Atorvastatin Calcium 20 MG TAB PO SCH (07:59)
[2023-12-13 12:45] VITALS: BP 101/64; TEMP 98.6
== END 2023-12-13 12:55 | disposition home or self-care (01) | DRG 854 ==
LOC: ERS 07:35 → T4-A 12:30
PROVIDERS: ADMIT Student in an Organized Health Care Education/Training Program; ATTEND Student in an Organized Health Care Education/Training Program
PROC: 0TC43ZZ Extirpation of Matter from Left Kidney Pelvis, Percutaneous Approach (ICD-10-PCS; principal; 2023-12-10)
PROC: 3E03329 Introduction of Other Anti-infective into Peripheral Vein, Percutaneous Approach (ICD-10-PCS; 2023-12-10)
DX: A41.9 Sepsis, unspecified organism (principal); N12 Tubulo-interstitial nephritis, not specified as acute or chronic; Z68.42 Body mass index [BMI] 45.0-49.9, adult; N20.0 Calculus of kidney; E78.5 Hyperlipidemia, unspecified; I10 Essential (primary) hypertension; E21.0 Primary hyperparathyroidism; Z79.899 Other long term (current) drug therapy; Z90.49 Acquired absence of other specified parts of digestive tract; K21.9 Gastro-esophageal reflux disease without esophagitis; Z98.890 Other specified postprocedural states; E66.01 Morbid (severe) obesity due to excess calories
CPT/HCPCS: 36415; 50432; 74176; 76942; 80048; 80053; 80202; 81001; 83036; 83605; 83690; 83970; 84145; 84443; 85025; 85610; 85730; 86140; 87040; 87077; 87086; 87149; 87186; 93005; 93010; 96361; 96365; 96375; 99152; 99153; J0696; J1885; J2250; J2405; J3010; J3370; J3370-JW; J3490; J7030; J7050; J7120; Q9967

== ENCOUNTER 2024-01-22 08:25 | Outpatient (CLI) | payer OTHER | END 2024-01-22 08:26 | disposition home or self-care (01) | LOC: BICRAD 08:25 | PROVIDERS: ATTEND Urology | DX: N20.0 Calculus of kidney (principal); Z96.0 Presence of urogenital implants | CPT/HCPCS: 74018 ==

== ENCOUNTER 2024-01-23 10:19 | Outpatient (CLI) | payer OTHER ==
[2024-01-23 12:39] LABS: Hematocrit 42.9 % (34.9-44.5); Hemoglobin 13.6 g/dL (12.0-15.5); Mean Corpuscular HGB CONC 31.7 g/dL (32.0-36.0); Mean Corpuscular Hemoglobin 26.6 pg (27.0-33.0); Mean Corpuscular Volume 83.8 fl (81.6-98.3); Mean Platelet Volume 10.5 fl (7.4-10.4); Platelet Count 279 10x3/uL (150-450); RBC Distribution Width 14.8 % (11.5-14.5); Red Blood Cell (RBC) Count 5.12 10x6/uL (3.90-5.03); White Blood Cell (WBC) Count 8.5 10x3/uL (3.5-10.5)
[2024-01-23 12:46] LABS: BHCG - Serum Negative (NEGATIVE); Pregs Control Background? CLEAR/WHITE (CLR/WHITE); Pregs Control Bar Appear? YES (CONTROL BAR)
[2024-01-23 12:49] LABS: PTT 27.7 sec (22.0-33.0); Prothrombin Time 10.5 sec (9.5-12.1)
[2024-01-23 12:57] LABS: Anion Gap 11 mmol/L (10-20); BUN (Urea Nitrogen) 8 mg/dL (9.8-20.1); Calc. Creatinine Clearance 0 mL/min (70-130); Calcium 11.3 mg/dL (7.8-10.44); Carbon Dioxide 23 mmol/L (22-29); Chloride 112 mmol/L (98-107); Estimated GFR 105; Glucose 81 mg/dL (70-105); Potassium 4.1 mmol/L (3.5-5.1); Sodium 142 mmol/L (136-145)
== END 2024-01-23 10:20 | disposition home or self-care (01) ==
LOC: LABBT 10:19
PROVIDERS: ATTEND Urology
DX: Z01.818 Encounter for other preprocedural examination (principal); N20.0 Calculus of kidney; E21.3 Hyperparathyroidism, unspecified; R79.89 Other specified abnormal findings of blood chemistry; D17.9 Benign lipomatous neoplasm, unspecified; R82.994 Hypercalciuria; Z98.890 Other specified postprocedural states
CPT/HCPCS: 80048; 84703; 85027; 85610; 85730; 93005; 93010

== ENCOUNTER 2024-02-05 08:53 | Day surgery (SDC) | payer OTHER ==
[2024-02-04 12:35] VITALS: BMI 45.7
[2024-02-05] MEDS ORDERED: PROPOFOL 20 ML ONE (10:58)
[2024-02-05] MEDS ORDERED: Lidocaine 1% PF 5 ML VIAL ONE (10:59)
[2024-02-05] MEDS ORDERED: Rocuronium Bromide 10 MG/ML (10ML VIAL) ONE (10:59)
[2024-02-05] MEDS ORDERED: fentaNYL PF 100 MCG/2 ML SYRINGE ONE (10:59)
[2024-02-05] MEDS ORDERED: Sodium Chloride 0.9% 100 ML ONE (11:23)
[2024-02-05] MEDS ORDERED: cefTRIAXone (ROCEPHIN) 2 GM VIAL ONE (11:23)
[2024-02-05] MEDS ORDERED: Dexamethasone 4 mg/ml Vial ONE (12:47)
[2024-02-05] MEDS ORDERED: SUGAMMADEX SODIUM 200 MG/2 ML VIAL ONE (12:47)
[2024-02-05] MEDS ORDERED: Ondansetron PF 4 MG/2 ML Vial ONE (12:47)
[2024-02-05] MEDS ORDERED: fentaNYL 50 mcg/mL 1 mL Vial ONE ×2 (13:47→14:41)
[2024-02-05] MEDS ORDERED: Phenazopyridine HCl 100 MG TAB ONE (14:19)
[2024-02-05] MEDS ORDERED: Oxybutynin 5 MG TAB ONE (14:20)
== END 2024-02-05 16:00 | disposition home or self-care (01) ==
LOC: SDC 08:53
PROVIDERS: ATTEND Urology
PROC: 0TC48ZZ Extirpation of Matter from Left Kidney Pelvis, Via Natural or Artificial Opening Endoscopic (ICD-10-PCS; principal; 2024-02-05)
PROC: 0T778DZ Dilation of Left Ureter with Intraluminal Device, Via Natural or Artificial Opening Endoscopic (ICD-10-PCS; principal; 2024-02-05)
DX: N20.0 Calculus of kidney (principal); D17.71 Benign lipomatous neoplasm of kidney; E66.01 Morbid (severe) obesity due to excess calories; K21.9 Gastro-esophageal reflux disease without esophagitis; I10 Essential (primary) hypertension; E21.3 Hyperparathyroidism, unspecified; Z98.890 Other specified postprocedural states; Z90.49 Acquired absence of other specified parts of digestive tract; Z68.42 Body mass index [BMI] 45.0-49.9, adult; Z79.899 Other long term (current) drug therapy
CPT/HCPCS: 74018; 74420; C1747; C2617; J0696; J1100; J2405; J2704; J3010; J3490

== ENCOUNTER 2024-02-12 08:53 | Outpatient (CLI) | payer OTHER | END 2024-02-12 08:54 | disposition home or self-care (01) | LOC: BICRAD 08:53 | PROVIDERS: ATTEND Urology | DX: N20.0 Calculus of kidney (principal); N28.89 Other specified disorders of kidney and ureter; Z96.0 Presence of urogenital implants | CPT/HCPCS: 74018 ==